=== PATIENT | male | born 1985 | race Caucasian/White ===

== ENCOUNTER 2024-08-15 11:48 | Emergency (ER) | payer OTHER, SELFPAY ==
[2024-08-15 12:01] VITALS: BP 116/83; PULSE 74; RESP 16; TEMP 36.9; O2SAT 97
--- NOTE | 2024-08-15 12:27 | ED_ITS ---
HPI - Skin/Abscess/Foreign Bdy General: Chief complaint: Skin/Abscess/Foreign Body Stated complaint: rash on neck Time Seen by Provider: 08/15/24 12:15 Source: patient Mode of arrival: ambulatory Limitations: no limitations History of Present Illness: 38-year-old male states he noticed a justin h to his left shoulder over the last week. He states it has been painful denies any itching denies any fever has had some yellow pustules. Associated symptoms: Deny chills, fever(s), nausea or vomiting Related Data Previous Rx's ?Medication ?Instructions ?Recorded mupirocin 2 % topical ointment 1 applic topical BID 7 days #15 08/15/24 (Centany) grams sulfamethoxazole 800 1 tab PO BID 10 days #20 tab s 08/15/24 mg-trimethoprim 160 mg tablet (Bactrim DS) Allergies Allergy/AdvReac Type Severity Reaction Status Date / Time No Known Allergies Allergy Verified 08/15/24 12:04 Review of Systems Const: Denies: fever(s), chills, body aches or change in appetite ENMT: Denies: throat pain or dental pain Card: Denies: chest pain Resp: Denies: dyspnea GI: Denies: abdominal pain, nausea, vomiting or diarrhea Musc: Denies: neck pain or back pain Skin/Breast: Reports: rash Physical Exam Const: COMMON NORMALS: no acute distress, patient oriented x3 and healthy appearing HENMT: COMMON NORMALS: normocephalic and atraumatic HEAD & SCALP: normocephalic and atraumatic Neck/C-Spine: COMMON NORMALS: full ROM and supple Chest: COMMONS NORMALS: normal inspection of the chest Resp: COMMON NORMALS: normal respiratory effort Cardio: COMMON NORMALS: regular rate RATE: regular rate Extremity: COMMON NORMALS: normal to inspection and full ROM Neuro: COMMON NORMALS: patient oriented x3, moves all extremities and no focal motor deficits Psych: COMMON NORMALS: mental status grossly normal, Normal thought process present and cooperative THOUGHT PROCESS: Normal thought process present Skin: NARRATIVE SKIN EXAM: Folliculitis noted left shoulder Course Vital Signs: Vital signs: Vital Signs Temperature 98.4 F 08/15/24 12:01 Pulse Rate 74 08/15/24 12:01 Respiratory Rate 16 08/15/24 12:01 Blood Pressure 116/83 08/15/24 12:01 Pulse Oximetry 97 08/15/24 12:01 Oxygen Delivery Me thod Room Air 08/15/24 12:01 MDM - Skin/Abscess/Foreign Bdy Medicial Decision Making Patient presents for folliculitis we will place him on muporicin and Bactrim he is to follow-up with PCP and return if worsening. Medical Records I reviewed the patient's medical records. No radiology studies performed this visit Discharge Plan Discharge Patient Disposition: Home Clinical Impression: Folliculitis Condition: Stable Prescriptions: New sulfamethoxazole-trimethoprim [Bactrim DS] 800-160 mg tablet 1 tab PO BID 10 Days Qty: 20 0RF mupirocin [Centany] 2 % ointment 1 applic topical BID 7 Days Qty: 15 0RF Discharge Orders: Discharge ED (Routine); Ordered 08/15/24 Ordered By: Mike Antonio Referrals: Brook Langston MD [Primary Care Provider, Family Practice] - 4-7 days Discharge Diet: Advance as tolerated Discharge Activity: Resume usual activity Patient Instructions: Folliculitis (ED) Print Language: Welsh Coding Level of Care Code ED Supervisor Pairing And Inspecting for Valentina Meadows
== END 2024-08-15 12:37 | disposition home or self-care (01) ==
PROVIDERS: Emergency Provider Emergency Medicine; PCP Family Medicine
DX: L73.9 Follicular disorder, unspecified (principal)
CPT/HCPCS: 99283